=== PATIENT | female | born 1945 | race Caucasian/White ===

== ENCOUNTER 2020-07-09 16:37 | Emergency (ER) | payer MEDICARE, BC ==
[2020-07-09] MEDS ORDERED: Ketorolac 60 MG/2 ML SDV IM ONE (17:20)
--- NOTE | 2020-07-09 17:33 | EDM.PDOC ---
ED HPI GENERAL MEDICAL PROBLEM - General Chief Complaint: Lower Extremity Injury/Pain Stated Complaint: FELT A POP IN HER HIP Time Seen by Provider: 07/09/20 16:40 Source of Information: Reports: Patient History Limitations: Reports: No Limitations - History of Present Illness INITIAL COMMENTS - FREE TEXT/NARRATIVE: Was moving furniture when she heard and felt a pop in her left hip ( had arthroplasty in september has pain radiating down the lateral aspect of the left thigh and pain in the ischial spine able to flex the left knee with no pain in the hip Onset: Today Onset Date: 07/09/20 - Related Data Allergies Allergy/AdvReac Type Severity Reaction Status Date / Time No Known Allergies Allergy Verified 07/09/20 17:45 Home Meds: Home Meds Acetaminophen/HYDROcodone [[place] 325-5 MG] 1 tab PO Q6H PRN #10 tab 07/09/20 [Rx] Baclofen 10 mg PO BID #30 tablet 07/09/20 [Rx] Lidocaine 5% [Lidoderm 5%] 1 patch TOP DAILY #30 patch 07/09/20 [Rx] Review of Systems - Review of Systems Review Of Systems: See Below ED EXAM, GENERAL - Physical Exam Exam: See Below Exam Limited By: No Limitations General Appearance: Alert, WD/WN, No Apparent Distress Eye Exam: Bilateral Eye: EOMI Ears: Normal External Exam Ear Exam: Bilateral Ear: TM Dull Nose: Normal Inspection Throat/Mouth: Normal Inspection, Normal Oropharynx Head: Atraumatic, Normocephalic Neck: Supple, Non-Tender Respiratory/Chest: Lungs Clear, Normal Breath Sounds Cardiovascular: Regular Rate, Rhythm GI/Abdominal: Soft, Non-Tender Back Exam: Full Range of Motion Extremities: Limited Range of Motion (left hip), Other (normal left knee). No: Joint Swelling, Sade's Sign, Leg Pain, Redness Neurological: Alert, Oriented, CN II-XII Intact Psychiatric: Normal Affect, Normal Mood Skin Exam: Warm Course - Vital Signs Last Recorded V/S: Last Vital Signs Temp 36.8 C 07/09/20 16:37 Pulse 82 07/09/20 20:20 Resp 16 07/09/20 20:20 BP 143/74 H 07/09/20 20:20 Pulse Ox 96 07/09/20 20:20 - Orders/Labs/Meds Orders: Active Orders 24 hr Category Date Time Status Pelvis wo Cont [CT] Stat Exams 07/09/20 17:20 Taken Meds: Medications Discontinued Medications Generic Name Dose Route Start Last Admin Trade Name Jessica PRN Reason Stop Dose Admin Ketorolac Tromethamine 60 mg 07/09/20 17:20 07/09/20 17:52 Toradol IM 07/09/20 17:21 60 mg ONETIME ONE Administration Lidocaine 700 mg 07/09/20 19:51 07/09/20 20:08 Lidoderm 5% TOP 07/09/20 19:52 700 mg ONETIME ONE Administration - Re-Assessments/Exams Free Text/Narrative Re-Assessment/Exam: 07/10/20 07:[address] of the pelvis done: showed arthroplasty , no new fracture pt had toradol with good relieve of pain was discharge home on pain medication and baclofen Departure - Departure Time of Disposition: 20:20 Disposition: Home, Self-Care 01 Condition: Good Clinical Impression: Arthropathy of left hip, H/O total hip arthroplasty, Strain of left hip and thigh - Discharge Information *PRESCRIPTION DRUG MONITORING PROGRAM REVIEWED*: Not Applicable *COPY OF PRESCRIPTION DRUG MONITORING 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: Not Applicable Prescriptions: Baclofen 10 mg PO BID #30 tablet Lidocaine 5% [Lidoderm 5%] 1 patch TOP DAILY #30 patch Acetaminophen/HYDROcodone [[place] 325-5 MG] 1 tab PO Q6H PRN #10 tab PRN Reason: Pain (Severe 7-10) Instructions: Preventing Osteoarthritis, Adult, Hamstring Strain Rehab- [facility] Referrals: PCP,None [Primary Care Provider] - Forms: ED Department Discharge Additional Instructions: 1) Cold compress to affected area 3 times daily 2) Follow up with PCP as needed Sepsis Event Note (ED) - Focused Exam Vital Signs: Vital Signs Pulse Resp BP Pulse Ox 07/09/20 20:20 82 16 143/74 H 96 - My Orders Last 24 Hours: My Active Orders 07/09/20 17:20 Pelvis wo Cont [CT] Stat - Assessment/Plan Last 24 Hours: My Active Orders 07/09/20 17:20 Pelvis wo Cont [CT] Stat
[2020-07-09] MEDS ORDERED: Lidocaine 5% 700 MG Patch TOP ONE (19:51)
== END 2020-07-09 20:20 | disposition home or self-care (01) ==
LOC: FB.ED 16:37
DX: S76.012A Strain of muscle, fascia and tendon of left hip, initial encounter (principal); S76.912A Strain of unspecified muscles, fascia and tendons at thigh level, left thigh, initial encounter; M12.852 Other specific arthropathies, not elsewhere classified, left hip; Z96.642 Presence of left artificial hip joint; X50.9XXA Other and unspecified overexertion or strenuous movements or postures, initial encounter
CPT/HCPCS: 72192; 96372; 99283-25; A9270-GY; J1885

== ENCOUNTER 2021-07-14 16:13 | Emergency (ER) | payer MEDICARE, BC ==
[2021-07-14] MEDS ORDERED: Albuterol/Ipratropium 3.0-0.5 MG/3 ML Neb Soln NEB STA (17:01)
[2021-07-14] MEDS ORDERED: methylPREDNISolone Sodium Succinate 125 MG/2 ML SDV IM STA (17:01)
--- NOTE | 2021-07-14 17:15 | EDM.PDOC ---
ED HPI GENERAL MEDICAL PROBLEM - General Chief Complaint: Respiratory Problem Stated Complaint: hard time breathing Time Seen by Provider: 07/14/21 16:25 Source of Information: Reports: Patient History Limitations: Reports: No Limitations - History of Present Illness INITIAL COMMENTS - FREE TEXT/NARRATIVE: Patient presented to the ED because if increasing dyspnea, coughing which started yesterday. She has a history of COPD ad her cough is more than usual and is non-productive. There is no fever, chills, N/V/D. She had a carpal surgery couple of days ago which was uneventful. 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 - Related Data Allergies Allergy/AdvReac Type Severity Reaction Status Date / Time ciprofloxacin [From Cipro] Allergy Nausea Verified 07/14/21 16:31 Penicillins Allergy Cannot Verified 07/14/21 17:41 Remember Home Meds: Home Meds Albuterol Sulfate [Albuterol Sulfate Hfa] 2 puff IH Q4H PRN 07/14/21 [History] Albuterol/Ipratropium [DuoNeb 3.0-0.5 MG/3 ML] 3 ml INH Q4HR PRN #90 ml 07/14/21 [Rx] Azithromycin [Zithromax] 500 mg PO DAILY #5 tab 07/14/21 [Rx] Budesonide [Pulmicort] 0.5 mg IH BID 07/14/21 [History] Famotidine 40 mg PO BEDTIME 07/14/21 [History] Formoterol Fumarate [Perforomist] 20 mcg IH BEDTIME 07/14/21 [History] Ketorolac [Toradol] 10 mg Q6H PRN 07/14/21 [History] predniSONE [Prednisone] 40 mg PO DAILY #10 tablet 07/14/21 [Rx] Past Medical History HEENT History: Reports: Impaired Vision Respiratory History: Reports: Asthma, COPD Gastrointestinal History: Reports: GERD 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: Musculoskeletal History: Reports: Arthritis, Fracture Other Musculoskeletal History: hx fx R arm - Infectious Disease History Infectious Disease History: Reports: Chicken Pox, Measles, Mumps, Rheumatic Fever - Past Surgical History HEENT Surgical History: Reports: Cataract Surgery, Eye Surgery Other HEENT Surgeries/Procedures: bilat cataract, bilat eyes for macular holes GI Surgical History: Reports: Cholecystectomy, Colon, Colonoscopy, EGD, Hernia Repair/Other Other GI Surgeries/Procedures: colon for twisted colon Musculoskeletal Surgical History: Reports: Carpal Tunnel, Hip Replacement Other Musculoskeletal Surgeries/Procedures:: R carpal tunnel Social & Family History - Family History Family Medical History: No Pertinent Family History - Tobacco Use Tobacco Use Status *Q: Former Tobacco User Years of Tobacco use: 25 Used Tobacco, but Quit: Yes Month/Year Tobacco Last Used: 2017 - Caffeine Use Caffeine Use: Reports: None - Recreational Drug Use Recreational Drug Use: No ED ROS GENERAL - Review of Systems Review Of Systems: See Below Constitutional: Reports: No Symptoms HEENT: Reports: No Symptoms Respiratory: Reports: Shortness of Breath, Wheezing, Cough Cardiovascular: Reports: No Symptoms Endocrine: Reports: No Symptoms GI/Abdominal: Reports: No Symptoms : Reports: No Symptoms Musculoskeletal: Reports: No Symptoms Skin: Reports: No Symptoms Neurological: Reports: No Symptoms Psychiatric: Reports: No Symptoms ED EXAM, GENERAL - Physical Exam Exam: See Below General Appearance: Alert, No Apparent Distress Ears: Normal External Exam, Normal Canal, Hearing Grossly Normal Nose: Normal Inspection, Normal Mucosa, No Blood Throat/Mouth: Normal Inspection, Normal Lips, Normal Teeth, Normal Gums, Normal Oropharynx, Normal Voice Head: Atraumatic, Normocephalic Neck: Normal Inspection, Supple, Non-Tender, Full Range of Motion Respiratory/Chest: No Respiratory Distress, Lungs Clear, No Accessory Muscle Use, Chest Non-Tender, Decreased Breath Sounds, Wheezing Cardiovascular: Normal Peripheral Pulses, Regular Rate, Rhythm, No Edema, No Gallop, No JVD, No Murmur, No Rub GI/Abdominal: Normal Bowel Sounds, Soft, Non-Tender, No Organomegaly, No Distention, No Abnormal Bruit Back Exam: Normal Inspection, Full Range of Motion Extremities: Normal Inspection, Normal Range of Motion, No Pedal Edema, Normal Capillary Refill Neurological: Alert, Oriented, CN II-XII Intact, Normal Cognition, Normal Reflexes Psychiatric: Normal Affect Course - Vital Signs Text/Narrative:: CXR-see result Solumedrol 125 mg IM x1 Duoneb x1 Last Recorded V/S: Last Vital Signs Temp 37.3 C 07/14/21 16:20 Pulse 71 07/14/21 18:02 Resp 20 07/14/21 18:02 BP 134/64 07/14/21 18:02 Pulse Ox 95 07/14/21 18:02 - Orders/Labs/Meds Meds: Medications Discontinued Medications Generic Name Dose Route Start Last Admin Trade Name Jessica PRN Reason Stop Dose Admin Albuterol/Ipratropium 3 ml 07/14/21 17:01 07/14/21 17:34 Albuterol/Ipratropium 3.0-0.5 Mg/3 Ml Neb Soln NEB 07/14/21 17:02 3 ml NOW STA Administration Azithromycin 500 mg 07/14/21 17:33 07/14/21 20:48 Azithromycin 500 Mg Tab PO 07/14/21 17:34 Not Given NOW STA Methylprednisolone Sodium Succinate 125 mg 07/14/21 17:01 07/14/21 17:34 Methylprednisolone Sodium Succinate 125 Mg/2 Ml Sdv IM 07/14/21 17:02 125 mg NOW STA Administration Departure - Departure Time of Disposition: 17:30 Disposition: Home, Self-Care 01 Condition: Good Clinical Impression: COPD (chronic obstructive pulmonary disease) - Discharge Information Prescriptions: Albuterol/Ipratropium [DuoNeb 3.0-0.5 MG/3 ML] 3 ml INH Q4HR PRN #90 ml PRN Reason: Dyspnea predniSONE [Prednisone] 40 mg PO DAILY #10 tablet Azithromycin [Zithromax] 500 mg PO DAILY #5 tab Instructions: Chronic Obstructive Pulmonary Disease Exacerbation, [id number] Referrals: Mauro Hoang PA [Primary Care Provider] - Forms: ED Department Discharge Additional Instructions: Please read discharge instructions on COPD flare up Albuterol neb every 4-6 hours for 3 days then as needed Continue your inhalers Zithromax 500 mg daily for 5 days Prednisone 40 mg daily for 5 days starting tomorrow Follow up as needed Sepsis Event Note (ED) - Evaluation Sepsis Screening Result: No Definite Risk
[2021-07-14] MEDS ORDERED: Azithromycin 500 MG Tab PO STA (17:33)
--- NOTE | 2021-07-14 19:40 | CR ---
INDICATION: Cough, dyspnea. CHEST, ONE VIEW: An AP upright portable view of the chest was obtained 07/14/21 - no comparisons. The aorta is tortuous. The heart did not appear grossly enlarged, but is not well seen. Somewhat flattened diaphragm leaves and hyperaeration suggests COPD. Dextroconvex scoliosis thoracolumbar spine with dextroconcave scoliosis upper middle thoracic spine noted. Heavy markings are noted at the right lower lung field, which could represent fibrosis, although patchy bronchopneumonia is difficult to exclude with this appearance. However, no gross consolidating pneumonia, or effusion was seen. When clinically possible, full-inspiration PA and lateral views of the chest, may be helpful for further evaluation. MTDD
== END 2021-07-14 18:13 | disposition home or self-care (01) ==
LOC: FB.ED 16:13
DX: J44.9 Chronic obstructive pulmonary disease, unspecified (principal); K21.9 Gastro-esophageal reflux disease without esophagitis; Z88.0 Allergy status to penicillin; Z88.1 Allergy status to other antibiotic agents; Z87.891 Personal history of nicotine dependence; Z79.899 Other long term (current) drug therapy
CPT/HCPCS: 71045; 94640; 96372; 99285; J2930; J7620-GY

== ENCOUNTER 2021-11-28 21:18 | Emergency (ER) | payer MEDICARE, BC ==
[2021-11-28] MEDS ORDERED: Albuterol/Ipratropium 3.0-0.5 MG/3 ML Neb Soln NEB ONE (21:34)
[2021-11-28] MEDS ORDERED: methylPREDNISolone Sodium Succinate 125 MG/2 ML SDV IM STA (21:34)
== END 2021-11-28 22:30 | disposition home or self-care (01) ==
LOC: FB.ED 21:18
DX: J44.1 Chronic obstructive pulmonary disease with (acute) exacerbation (principal); Z88.0 Allergy status to penicillin; Z88.1 Allergy status to other antibiotic agents
CPT/HCPCS: 71045; 94640; 96372; 99282; 99285-25; J2930; J7620

== ENCOUNTER 2021-11-30 10:20 | Emergency (ER) | payer MEDICARE, BC ==
[2021-11-30] MEDS ORDERED: Albuterol/Ipratropium 3.0-0.5 MG/3 ML Neb Soln NEB ONE (10:30)
[2021-11-30] MEDS ORDERED: predniSONE 20 MG Tab PO STA (10:33)
== END 2021-11-30 13:26 | disposition home or self-care (01) ==
LOC: SUPCPDRO 10:20 → FB.ED 10:20
DX: J44.1 Chronic obstructive pulmonary disease with (acute) exacerbation (principal); K21.9 Gastro-esophageal reflux disease without esophagitis; Z88.0 Allergy status to penicillin; Z88.1 Allergy status to other antibiotic agents; Z72.0 Tobacco use
CPT/HCPCS: 94640; 99284; J7512; 99282; J7620

== ENCOUNTER 2022-08-13 14:04 | Emergency (ER) | payer MEDICARE ==
[2022-08-13] MEDS ORDERED: Ketorolac 30 MG/ML SDV IM ONE (14:53)
[2022-08-13 15:43] LABS: CORONAVIRUS COVID-19 NAA NEGATIVE (NEGATIVE)
== END 2022-08-13 16:57 | disposition home or self-care (01) ==
LOC: FB.ED 14:04
DX: J18.9 Pneumonia, unspecified organism (principal); J44.9 Chronic obstructive pulmonary disease, unspecified; Z88.1 Allergy status to other antibiotic agents; Z88.0 Allergy status to penicillin; Z79.899 Other long term (current) drug therapy; Z20.822 Contact with and (suspected) exposure to COVID-19
CPT/HCPCS: 0241U; 36415; 71046; 85027; 86140; 96372; 99285; J1885

== ENCOUNTER 2023-02-08 16:25 | Emergency (ER) | payer MEDICARE, BC ==
[2023-02-08] MEDS ORDERED: Iopamidol 755 Mg/ML 100 ML Bottle IV ONE (17:51)
== END 2023-02-08 19:25 | disposition home or self-care (01) ==
LOC: FB.ED 16:25
DX: M48.56XA Collapsed vertebra, not elsewhere classified, lumbar region, initial encounter for fracture (principal); M47.816 Spondylosis without myelopathy or radiculopathy, lumbar region; J44.9 Chronic obstructive pulmonary disease, unspecified; Z88.0 Allergy status to penicillin; Z88.1 Allergy status to other antibiotic agents; Z79.899 Other long term (current) drug therapy
CPT/HCPCS: 74177; 99283; Q9967

== ENCOUNTER 2023-02-13 06:57 | Emergency (ER) | payer MEDICARE, BC ==
[2023-02-13] MEDS ORDERED: traMADol 50 MG Tab PO ONE (07:53)
[2023-02-13] MEDS ORDERED: Cyclobenzaprine 10 MG Tab PO ONE (07:53)
[2023-02-13] MEDS ORDERED: Ketorolac 30 MG/ML SDV IM ONE ×2 (07:53→08:00)
[2023-02-13] MEDS: Ketorolac 30 MG/ML SDV IVPUSH ONE ×2 (08:03→09:12)
== END 2023-02-13 09:10 | disposition home or self-care (01) ==
LOC: FB.ED 06:57
DX: M51.16 Intervertebral disc disorders with radiculopathy, lumbar region (principal); J44.9 Chronic obstructive pulmonary disease, unspecified; Z87.891 Personal history of nicotine dependence; Z79.899 Other long term (current) drug therapy; Z88.1 Allergy status to other antibiotic agents; Z88.0 Allergy status to penicillin
CPT/HCPCS: 96372; 99283; A9270; J1885

== ENCOUNTER 2023-07-05 23:28 | Observation (INO) | payer MEDICARE, BC ==
[2023-07-05 23:58] LABS: BASOPHILS PERCENT AUTO 0.5 % (0.2-1.5); EOSINOPHILS ABSOLUTE AUTO 0.2 x10-3/uL (0.0-0.8); EOSINOPHILS PERCENT AUTO 2.8 % (0.6-8.1); HEMOGLOBIN 12.3 g/dL (11.4-15.5); LYMPHOCYTES ABSOLUTE AUTO 1.2 x10-3/uL (1.0-4.4); LYMPHOCYTES PERCENT AUTO 21.4 % (18.4-52.1); MEAN CORPUSCULAR HEMOGLOBIN 30.8 pg (23.9-33.9); MEAN CORPUSCULAR HGB CONC 33.4 g/dL (31.9-34.8); MEAN CORPUSCULAR VOLUME 92.1 fL (76.7-100.5); MEAN PLATELET VOLUME 7.1 fL (7.1-12.4); MONOCYTES ABSOLUTE AUTO 0.6 x10-3/uL (0.3-1.0); MONOCYTES PERCENT AUTO 11.1 % (4.4-15.7); NEUTROPHILS ABSOLUTE AUTO 3.6 x10-3/uL (1.5-6.3); NEUTROPHILS PERCENT AUTO 64.2 % (30.8-76.2); PLATELET COUNT,PLT 322 x10(3)uL (151-488); RED BLOOD CELL COUNT 4.01 x10(6)uL (3.60-5.20); RED CELL DISTRIBUTION WIDTH 12.9 % (12.3-16.5); WHITE BLOOD CELL COUNT,WBC 5.6 x10-3/uL (3.0-10.3)
[2023-07-06] MEDS ORDERED: HYDROmorphone 2 MG/ML SDV IM ONE (00:23)
[2023-07-06] MEDS ORDERED: hydrOXYzine HCl 50 MG/ML SDV IM ONE (00:23)
[2023-07-06] MEDS ORDERED: Triamcinolone Acetonide 40 MG/ML 1 ML SDV IM ONE (02:08)
[2023-07-06] MEDS ORDERED: Lidocaine 2% 5 ML SDV INJECT ONE (02:09)
[2023-07-06] MEDS ORDERED: LIDOCAINE 2% INJECT ONE (02:15)
[2023-07-06] MEDS ORDERED: HYDROmorphone 2 MG/ML SDV IVPUSH PRN (02:25)
[2023-07-06] MEDS ORDERED: Ondansetron 4 MG/2 ML SDV IV PRN (02:25)
[2023-07-06] MEDS: Sodium Chloride 0.9% 10 ML Syringe FLUSH PRN ×2 (03:30→03:35)
[2023-07-06] MEDS: cefTRIAXone 2 GM Vial IVPUSH SCH (03:31)
[2023-07-06] MEDS: Enoxaparin 40 MG/0.4 ML Syringe SUBCUT SCH (03:36)
[2023-07-06] MEDS: Ibuprofen 800 MG Tab PO PRN ×2 (06:29→21:10)
[2023-07-06 06:42] LABS: BASOPHILS PERCENT AUTO 0.8 % (0.2-1.5); EOSINOPHILS ABSOLUTE AUTO 0.1 x10-3/uL (0.0-0.8); EOSINOPHILS PERCENT AUTO 2.3 % (0.6-8.1); HEMOGLOBIN 12.4 g/dL (11.4-15.5); LYMPHOCYTES ABSOLUTE AUTO 0.9 x10-3/uL (1.0-4.4); MEAN CORPUSCULAR HGB CONC 33.4 g/dL (31.9-34.8); MEAN CORPUSCULAR VOLUME 92.6 fL (76.7-100.5); MEAN PLATELET VOLUME 7.1 fL (7.1-12.4); MONOCYTES ABSOLUTE AUTO 0.5 x10-3/uL (0.3-1.0); MONOCYTES PERCENT AUTO 9.4 % (4.4-15.7); NEUTROPHILS ABSOLUTE AUTO 3.9 x10-3/uL (1.5-6.3); NEUTROPHILS PERCENT AUTO 70.5 % (30.8-76.2); PLATELET COUNT,PLT 300 x10(3)uL (151-488); RED BLOOD CELL COUNT 3.99 x10(6)uL (3.60-5.20); RED CELL DISTRIBUTION WIDTH 12.7 % (12.3-16.5); WHITE BLOOD CELL COUNT,WBC 5.6 x10-3/uL (3.0-10.3)
[2023-07-06 06:51] LABS: BLOOD UREA NITROGEN,BUN 8 mg/dL (7-18); BUN/CREATININE RATIO 13.3 (9-20); CALCIUM 9.2 mg/dL (8.6-10.2); CARBON DIOXIDE,CO2 31 mmol/L (21-32); CHLORIDE,CL 105 mmol/L (100-110); CREATININE 0.6 mg/dL (0.55-1.02); EST CRCL DRUG DOSING (CG) 69.53 mL/min; ESTIMATED GFR 92 mL/min (>60); GLUCOSE RANDOM 102 mg/dL (80-116); SODIUM,NA 140 mmol/L (135-145)
[2023-07-06] MEDS ORDERED: Celecoxib 100 MG Cap PO SCH (10:15)
[2023-07-06] MEDS: Budesonide 0.5 MG/2 ML Neb Susp INH SCH ×2 (10:59→20:53)
[2023-07-06] MEDS: Arformoterol 15 MCG/2 ML Neb Soln INH SCH ×2 (10:59→20:53)
[2023-07-07] MEDS: cefTRIAXone 2 GM Vial IVPUSH SCH (02:22)
[2023-07-07] MEDS: Sodium Chloride 0.9% 10 ML Syringe FLUSH PRN (02:24)
[2023-07-07] MEDS: Enoxaparin 40 MG/0.4 ML Syringe SUBCUT SCH (02:30)
[2023-07-07] MEDS: Ibuprofen 800 MG Tab PO PRN (08:31)
[2023-07-07] MEDS: Arformoterol 15 MCG/2 ML Neb Soln INH SCH (08:33)
[2023-07-07] MEDS: Budesonide 0.5 MG/2 ML Neb Susp INH SCH (08:33)
== END 2023-07-07 10:32 | disposition home or self-care (01) ==
LOC: FB.ED 23:28 → FB.MS 07-06 02:24
PROVIDERS: ADMIT Family Medicine; ATTEND Family Medicine
DX: L03.115 Cellulitis of right lower limb (principal); M70.62 Trochanteric bursitis, left hip; J43.1 Panlobular emphysema; S32.050D Wedge compression fracture of fifth lumbar vertebra, subsequent encounter for fracture with routine healing; M51.36 Other intervertebral disc degeneration, lumbar region; R53.1 Weakness; K21.9 Gastro-esophageal reflux disease without esophagitis; Z87.891 Personal history of nicotine dependence; Z88.5 Allergy status to narcotic agent; Z88.0 Allergy status to penicillin; Z88.1 Allergy status to other antibiotic agents; Z79.1 Long term (current) use of non-steroidal anti-inflammatories (NSAID); Z79.899 Other long term (current) drug therapy; Z96.642 Presence of left artificial hip joint
CPT/HCPCS: 20610; 36415; 72192; 73700; 80048; 84550; 85025; 86140; 94640; 96372; 96374; 96376; 99222; 99238; 99284; A9270; G0378; J0696; J1170; J1650; J3301; J3410; J3490; J7605

== ENCOUNTER 2023-08-28 23:48 | Emergency (ER) | payer MEDICARE, BC ==
[2023-08-28] MEDS ORDERED: Sodium Chloride 0.9% 10 ML Syringe FLUSH PRN (23:58)
[2023-08-29 00:15] LABS: BASE EXCESS VENOUS,POC 3 mmol/L (-2 - 3+); PCO2 VENOUS,POC 37 mmHg (41-51); PH VENOUS,POC 7.47 pH Units (7.32-7.43)
[2023-08-29 00:18] LABS: BASOPHILS PERCENT AUTO 0.5 % (0.2-1.5); EOSINOPHILS ABSOLUTE AUTO 0.1 x10-3/uL (0.0-0.8); EOSINOPHILS PERCENT AUTO 0.7 % (0.6-8.1); HEMATOCRIT 35.5 % (34.2-48.2); HEMOGLOBIN 11.9 g/dL (11.4-15.5); LYMPHOCYTES PERCENT AUTO 11.7 % (18.4-52.1); MEAN CORPUSCULAR HEMOGLOBIN 29.1 pg (23.9-33.9); MEAN CORPUSCULAR HGB CONC 33.4 g/dL (31.9-34.8); MEAN CORPUSCULAR VOLUME 87.2 fL (76.7-100.5); MEAN PLATELET VOLUME 7.1 fL (7.1-12.4); MONOCYTES ABSOLUTE AUTO 0.7 x10-3/uL (0.3-1.0); MONOCYTES PERCENT AUTO 8.7 % (4.4-15.7); NEUTROPHILS ABSOLUTE AUTO 6.7 x10-3/uL (1.5-6.3); NEUTROPHILS PERCENT AUTO 78.4 % (30.8-76.2); PLATELET COUNT,PLT 408 x10(3)uL (151-488); RED BLOOD CELL COUNT 4.08 x10(6)uL (3.60-5.20); RED CELL DISTRIBUTION WIDTH 13.7 % (12.3-16.5); WHITE BLOOD CELL COUNT,WBC 8.5 x10-3/uL (3.0-10.3)
[2023-08-29 00:30] LABS: A/G RATIO 0.3; ALANINE AMINOTRANSFERASE,ALT 28 U/L (12-36); ALKALINE PHOSPHATASE 149 IU/L (56-112); ASPARTATE AMNIOTRANSFERASE,AST 31 IU/L (5-25); BILIRUBIN TOTAL 0.3 mg/dL (0.1-1.3); BLOOD UREA NITROGEN,BUN 9 mg/dL (7-18); CARBON DIOXIDE,CO2 33 mmol/L (21-32); CHLORIDE,CL 101 mmol/L (100-110); CREATININE 0.6 mg/dL (0.55-1.02); EST CRCL DRUG DOSING (CG) 65.65 mL/min; ESTIMATED GFR 91 mL/min (>60); GLUCOSE RANDOM 119 mg/dL (80-116); MAGNESIUM 1.6 mg/dL (1.8-2.5); PROTEIN TOTAL,TP 8.1 g/dL (6.0-8.0); SODIUM,NA 136 mmol/L (135-145)
[2023-08-29 00:34] LABS: TROPONIN I 12.7 pg/mL (4.0-60.3)
[2023-08-29 00:36] LABS: C-REACTIVE PROTEIN 6.84 mg/dL (<0.50)
[2023-08-29] MEDS ORDERED: Iopamidol 755 Mg/ML 100 ML Bottle IV SCH (02:00)
[2023-08-29] MEDS ORDERED: predniSONE 20 MG Tab PO ONE (02:26)
[2023-08-29] MEDS ORDERED: Doxycycline 100 MG Tab PO ONE (02:26)
== END 2023-08-29 02:45 | disposition home or self-care (01) ==
LOC: FB.ED 23:48
DX: J44.1 Chronic obstructive pulmonary disease with (acute) exacerbation (principal); K21.9 Gastro-esophageal reflux disease without esophagitis; Z87.891 Personal history of nicotine dependence; Z79.899 Other long term (current) drug therapy; Z88.1 Allergy status to other antibiotic agents; Z88.5 Allergy status to narcotic agent; Z88.0 Allergy status to penicillin; Z86.16 Personal history of COVID-19
CPT/HCPCS: 36415; 71045; 71275; 80053; 83605; 83735; 83880; 84484; 85025; 85379; 86140; 93005; 99285; A9270-GY; J3490; J7512; Q9967

== ENCOUNTER 2023-09-26 09:20 | Emergency (ER) | payer MEDICARE, BC ==
[2023-09-26] MEDS ORDERED: methylPREDNISolone Sodium Succinate 125 MG/2 ML SDV IM STA (09:21)
[2023-09-26] MEDS ORDERED: Albuterol/Ipratropium 3.0-0.5 MG/3 ML Neb Soln NEB ONE (09:21)
[2023-09-26 10:37] LABS: HEMATOCRIT 35.3 % (34.2-48.2); HEMOGLOBIN 11.6 g/dL (11.4-15.5); MEAN CORPUSCULAR HEMOGLOBIN 28.5 pg (23.9-33.9); MEAN CORPUSCULAR VOLUME 86.5 fL (76.7-100.5); MEAN PLATELET VOLUME 6.5 fL (7.1-12.4); PLATELET COUNT,PLT 514 x10(3)uL (151-488); RED BLOOD CELL COUNT 4.08 x10(6)uL (3.60-5.20); RED CELL DISTRIBUTION WIDTH 16.3 % (12.3-16.5)
[2023-09-26 10:49] LABS: BLOOD UREA NITROGEN,BUN 10 mg/dL (7-18); BUN/CREATININE RATIO 16.7 (9-20); CALCIUM 7.4 mg/dL (8.6-10.2); CARBON DIOXIDE,CO2 29 mmol/L (21-32); CHLORIDE,CL 98 mmol/L (100-110); CREATININE 0.6 mg/dL (0.55-1.02); ESTIMATED GFR 91 mL/min (>60); GLUCOSE RANDOM 109 mg/dL (80-116); POTASSIUM,K 3.8 mmol/L (3.5-5.3); SODIUM,NA 133 mmol/L (135-145)
[2023-09-26 10:55] LABS: A/G RATIO 0.4; ALANINE AMINOTRANSFERASE,ALT 22 U/L (12-36); ALBUMIN 1.9 g/dL (3.2-4.6); ALKALINE PHOSPHATASE 99 IU/L (56-112); ASPARTATE AMNIOTRANSFERASE,AST 34 IU/L (5-25); BILIRUBIN TOTAL 0.7 mg/dL (0.1-1.3); PROTEIN TOTAL,TP 6.7 g/dL (6.0-8.0)
[2023-09-26 10:56] LABS: TROPONIN I 4.1 pg/mL (4.0-60.3)
[2023-09-26 11:06] LABS: INR 1.08 (1.00-1.24); PROTHROMBIN TIME 11.1 sec (9.0-11.1); PTT,PARTIAL THROMBOPLSTIN TIME 32.6 SECONDS (24.4-33.2)
[2023-09-26 11:29] LABS: BAND PERCENT MAN 6 % (0-6); LYMPHOCYTES PERCENT MAN 8 % (13-37); MONOCYTES PERCENT MAN 3 % (4-12); SEG NEUTROPHILS PERCENT MAN 83 % (46-82)
[2023-09-26] MEDS ORDERED: Clopidogrel 75 MG Tab PO ONE (11:36)
[2023-09-26] MEDS ORDERED: Heparin Sodium 5,000 Units/ML Vial IVPUSH STA (11:36)
[2023-09-26] MEDS ORDERED: Aspirin 81 MG Tab.Chew PO ONE (11:36)
[2023-09-26] MEDS ORDERED: Heparin Sodium/0.45% NaCl 500 ML IV SCH ×2 (11:38→11:43)
== END 2023-09-26 12:25 ==
LOC: FB.ED 09:20
DX: J43.1 Panlobular emphysema (principal); I30.9 Acute pericarditis, unspecified; I24.9 Acute ischemic heart disease, unspecified; J44.9 Chronic obstructive pulmonary disease, unspecified; Z79.899 Other long term (current) drug therapy; Z88.0 Allergy status to penicillin; Z88.1 Allergy status to other antibiotic agents; Z88.5 Allergy status to narcotic agent
CPT/HCPCS: 36415; 71045; 80053; 83880; 84484; 85025; 85610; 85730; 93005; 93010; 94640; 96372; 96374; 99285; 99285-25; A9270-GY; J1644; J2930; J7620

== ENCOUNTER 2023-10-15 22:28 | Emergency (ER) | payer MEDICARE, BC ==
[2023-10-15] MEDS ORDERED: Acetaminophen 500 MG Tab PO ONE (22:56)
[2023-10-15] MEDS ORDERED: Sodium Chloride 0.9% 1,000 ML IV ONE (22:59)
[2023-10-15] MEDS ORDERED: Ondansetron 4 MG/2 ML SDV IVPUSH ONE (23:15)
[2023-10-15 23:25] LABS: HEMATOCRIT 39.5 % (34.2-48.2); HEMOGLOBIN 12.9 g/dL (11.4-15.5); MEAN CORPUSCULAR HEMOGLOBIN 28.7 pg (23.9-33.9); MEAN CORPUSCULAR HGB CONC 32.5 g/dL (31.9-34.8); MEAN CORPUSCULAR VOLUME 88.3 fL (76.7-100.5); MEAN PLATELET VOLUME 8.3 fL (7.1-12.4); PLATELET COUNT,PLT 202 x10(3)uL (151-488); RED BLOOD CELL COUNT 4.47 x10(6)uL (3.60-5.20); RED CELL DISTRIBUTION WIDTH 19.3 % (12.3-16.5); WHITE BLOOD CELL COUNT,WBC 13.1 x10-3/uL (3.0-10.3)
[2023-10-15 23:28] LABS: BLOOD UREA NITROGEN,BUN 21 mg/dL (7-18); CALCIUM 8.2 mg/dL (8.6-10.2); CARBON DIOXIDE,CO2 25 mmol/L (21-32); CHLORIDE,CL 96 mmol/L (100-110); ESTIMATED GFR 57 mL/min (>60); GLUCOSE RANDOM 88 mg/dL (80-116); POTASSIUM,K 3.3 mmol/L (3.5-5.3); SODIUM,NA 131 mmol/L (135-145)
[2023-10-15 23:37] LABS: TROPONIN I 4.2 pg/mL (4.0-60.3)
[2023-10-15 23:40] LABS: A/G RATIO 0.6; ALANINE AMINOTRANSFERASE,ALT 45 U/L (12-36); ALBUMIN 2.9 g/dL (3.2-4.6); ALKALINE PHOSPHATASE 130 IU/L (56-112); ASPARTATE AMNIOTRANSFERASE,AST 43 IU/L (5-25); BILIRUBIN TOTAL 1.2 mg/dL (0.1-1.3); PROTEIN TOTAL,TP 7.9 g/dL (6.0-8.0)
[2023-10-15 23:43] LABS: C-REACTIVE PROTEIN 19.06 mg/dL (<0.50)
[2023-10-15] MEDS ORDERED: Sodium Chloride 0.9% 1,000 ML IV SCH (23:45)
[2023-10-15 23:49] LABS: LYMPHOCYTES PERCENT MAN 5 % (13-37); MONOCYTES PERCENT MAN 6 % (4-12); SEG NEUTROPHILS PERCENT MAN 89 % (46-82)
[2023-10-15] MEDS ORDERED: Potassium Chloride 20 MEQ Tab.ER PO ONE (23:49)
[2023-10-15] MEDS ORDERED: Magnesium Sulfate/Water 2 GM in Premix Bag 1 BAG IV ONE (23:50)
[2023-10-15] MEDS ORDERED: Potassium Chloride 20 MEQ in Premix Bag 1 BAG IV ONE (23:57)
[2023-10-16] MEDS ORDERED: Iopamidol 755 Mg/ML 100 ML Bottle IV SCH (01:00)
[2023-10-16 01:09] LABS: BILIRUBIN,URINE NEGATIVE (NEGATIVE); GLUCOSE,URINE NORMAL (NORMAL); KETONES,URINE 50 mg/dL (NEGATIVE); LEUKOCYTE ESTERASE,URINE LARGE (NEGATIVE); NITRITE,URINE NEGATIVE (NEGATIVE); OCCULT BLOOD,URINE MODERATE (NEGATIVE); PROTEIN,URINE TRACE mg/dL (NEGATIVE); UROBILINOGEN,URINE NORMAL (NEGATIVE)
[2023-10-16 01:17] LABS: APPEARANCE,URINE CLEAR (CLEAR); BACTERIA,URINE MODERATE (NS); COLOR,URINE YELLOW (YELLOW); RBC,URINE 0-5 (0-5); SQUAMOUS EPITHELIAL CELLS,UR FEW (NS,R,O); WBC,URINE 0-5 (0-5)
[2023-10-16] MEDS ORDERED: cefTRIAXone 1 GM Vial IVPUSH SCH (02:00)
== END 2023-10-16 03:37 ==
LOC: FB.ED 22:28
DX: R50.9 Fever, unspecified (principal); R19.7 Diarrhea, unspecified; J44.9 Chronic obstructive pulmonary disease, unspecified; K21.9 Gastro-esophageal reflux disease without esophagitis; Z86.16 Personal history of COVID-19; Z90.710 Acquired absence of both cervix and uterus; Z79.899 Other long term (current) drug therapy; Z88.0 Allergy status to penicillin; Z88.1 Allergy status to other antibiotic agents; Z88.5 Allergy status to narcotic agent
CPT/HCPCS: 36415; 71046; 74177; 80053; 81001; 83605; 83735; 84443; 84484; 85025; 86140; 87040; 87086; 93005; 93010; 96365; 96366; 96368; 96375; 99285; 99285-25; A9270-GY; J0696; J2405; J3475; J3480; J7030; Q9967

== ENCOUNTER 2023-12-25 17:11 | Inpatient (IN) | payer MEDICARE, BC ==
[2023-12-25 18:07] LABS: INFLUENZA A NAA NEGATIVE (NEGATIVE); INFLUENZA B NAA NEGATIVE (NEGATIVE); RESPIRATORY SYNCYTIAL VIR NAA NEGATIVE (NEGATIVE)
[2023-12-25] MEDS: Albuterol/Ipratropium 3.0-0.5 MG/3 ML Neb Soln NEB ONE (18:40)
[2023-12-25 18:52] LABS: BASOPHILS PERCENT AUTO 0.7 % (0.2-1.5); EOSINOPHILS ABSOLUTE AUTO 0.1 x10-3/uL (0.0-0.8); EOSINOPHILS PERCENT AUTO 1.9 % (0.6-8.1); HEMATOCRIT 36.9 % (34.2-48.2); HEMOGLOBIN 12.1 g/dL (11.4-15.5); LYMPHOCYTES PERCENT AUTO 22.2 % (18.4-52.1); MEAN CORPUSCULAR HEMOGLOBIN 28.9 pg (23.9-33.9); MEAN CORPUSCULAR HGB CONC 32.8 g/dL (31.9-34.8); MEAN CORPUSCULAR VOLUME 88.2 fL (76.7-100.5); MEAN PLATELET VOLUME 7.5 fL (7.1-12.4); MONOCYTES ABSOLUTE AUTO 0.5 x10-3/uL (0.3-1.0); MONOCYTES PERCENT AUTO 12.5 % (4.4-15.7); NEUTROPHILS ABSOLUTE AUTO 2.7 x10-3/uL (1.5-6.3); NEUTROPHILS PERCENT AUTO 62.7 % (30.8-76.2); PLATELET COUNT,PLT 269 x10(3)uL (151-488); RED BLOOD CELL COUNT 4.18 x10(6)uL (3.60-5.20); WHITE BLOOD CELL COUNT,WBC 4.4 x10-3/uL (3.0-10.3)
[2023-12-25 18:54] LABS: BLOOD UREA NITROGEN,BUN 8 mg/dL (7-18); BUN/CREATININE RATIO 13.3 (9-20); CALCIUM 8.5 mg/dL (8.6-10.2); CARBON DIOXIDE,CO2 33 mmol/L (21-32); CHLORIDE,CL 102 mmol/L (100-110); CREATININE 0.6 mg/dL (0.55-1.02); EST CRCL DRUG DOSING (CG) 68.41 mL/min; ESTIMATED GFR 91 mL/min (>60); GLUCOSE RANDOM 92 mg/dL (80-116); POTASSIUM,K 3.2 mmol/L (3.5-5.3); SODIUM,NA 140 mmol/L (135-145)
[2023-12-25 18:57] LABS: CORONAVIRUS COVID-19 NAA NEGATIVE (NEGATIVE)
[2023-12-25 19:00] LABS: A/G RATIO 0.5; ALANINE AMINOTRANSFERASE,ALT 72 U/L (12-36); ALBUMIN 2.5 g/dL (3.2-4.6); ALKALINE PHOSPHATASE 265 IU/L (56-112); ASPARTATE AMNIOTRANSFERASE,AST 72 IU/L (5-25); BILIRUBIN TOTAL 0.4 mg/dL (0.1-1.3); MAGNESIUM 1.9 mg/dL (1.8-2.5); PROTEIN TOTAL,TP 7.8 g/dL (6.0-8.0)
[2023-12-25 19:09] LABS: TROPONIN I 4.6 pg/mL (4.0-60.3)
[2023-12-25 19:11] LABS: C-REACTIVE PROTEIN 3.69 mg/dL (<0.50)
[2023-12-25] MEDS: Potassium Chloride 20 MEQ Tab.ER PO ONE (19:40)
[2023-12-25 19:46] LABS: BILIRUBIN,URINE SMALL (NEGATIVE); GLUCOSE,URINE NORMAL (NORMAL); KETONES,URINE NEGATIVE (NEGATIVE); LEUKOCYTE ESTERASE,URINE MODERATE (NEGATIVE); NITRITE,URINE NEGATIVE (NEGATIVE); OCCULT BLOOD,URINE MODERATE (NEGATIVE); PROTEIN,URINE NEGATIVE (NEGATIVE); UROBILINOGEN,URINE NORMAL (NEGATIVE)
[2023-12-25 19:49] LABS: APPEARANCE,URINE CLEAR (CLEAR); BACTERIA,URINE MODERATE (NS); COLOR,URINE YELLOW (YELLOW); RBC,URINE 0-5 (0-5); SQUAMOUS EPITHELIAL CELLS,UR FEW (NS,R,O)
[2023-12-25] MEDS: Iopamidol 755 Mg/ML 100 ML Bottle IV SCH (20:10)
[2023-12-25] MEDS ORDERED: Albuterol 0.083% 2.5 MG/3 ML Neb Soln NEB PRN (21:04)
[2023-12-25] MEDS ORDERED: Ondansetron 4 MG/2 ML SDV IV PRN (21:07)
[2023-12-25] MEDS ORDERED: Acetaminophen 325 MG Tab PO PRN (21:07)
[2023-12-25] MEDS ORDERED: Magnesium Hydroxide 400 MG/5 ML Susp 30 ML Cup PO PRN (21:07)
[2023-12-25] MEDS ORDERED: Dextrose 5%-0.45% NaCl 1,000 ML IV SCH (21:15)
[2023-12-25] MEDS ORDERED: Fluticasone NASAL Spray 16 GM Bottle NASBOTH PRN (21:15)
[2023-12-25] MEDS: Budesonide 0.5 MG/2 ML Neb Susp NEB SCH (22:32)
[2023-12-25] MEDS: Ciprofloxacin in D5W 400 MG in Premix Bag 1 BAG IV SCH (22:33)
[2023-12-25] MEDS: Albuterol/Ipratropium 3.0-0.5 MG/3 ML Neb Soln INH SCH (22:33)
[2023-12-25] MEDS: Zolpidem 5 MG Tab PO PRN (22:34)
[2023-12-25] MEDS: Rosuvastatin 5 MG Tab PO SCH (23:12)
[2023-12-25] MEDS: Enoxaparin 40 MG/0.4 ML Syringe SUBCUT SCH (23:17)
[2023-12-26] MEDS: Sodium Chloride 0.9% 10 ML Syringe FLUSH PRN (06:45)
[2023-12-26 06:51] LABS: BASOPHILS PERCENT AUTO 0.7 % (0.2-1.5); EOSINOPHILS ABSOLUTE AUTO 0.1 x10-3/uL (0.0-0.8); EOSINOPHILS PERCENT AUTO 1.7 % (0.6-8.1); HEMATOCRIT 34.4 % (34.2-48.2); HEMOGLOBIN 11.2 g/dL (11.4-15.5); LYMPHOCYTES ABSOLUTE AUTO 0.8 x10-3/uL (1.0-4.4); LYMPHOCYTES PERCENT AUTO 21.3 % (18.4-52.1); MEAN CORPUSCULAR HEMOGLOBIN 28.6 pg (23.9-33.9); MEAN CORPUSCULAR HGB CONC 32.5 g/dL (31.9-34.8); MEAN PLATELET VOLUME 7.1 fL (7.1-12.4); MONOCYTES ABSOLUTE AUTO 0.5 x10-3/uL (0.3-1.0); MONOCYTES PERCENT AUTO 15.3 % (4.4-15.7); NEUTROPHILS ABSOLUTE AUTO 2.2 x10-3/uL (1.5-6.3); PLATELET COUNT,PLT 222 x10(3)uL (151-488); RED BLOOD CELL COUNT 3.91 x10(6)uL (3.60-5.20); RED CELL DISTRIBUTION WIDTH 15.8 % (12.3-16.5); WHITE BLOOD CELL COUNT,WBC 3.6 x10-3/uL (3.0-10.3)
[2023-12-26 07:04] LABS: BLOOD UREA NITROGEN,BUN 5 mg/dL (7-18); CALCIUM 8.2 mg/dL (8.6-10.2); CARBON DIOXIDE,CO2 31 mmol/L (21-32); CHLORIDE,CL 104 mmol/L (100-110); CREATININE 0.5 mg/dL (0.55-1.02); EST CRCL DRUG DOSING (CG) 65.53 mL/min; ESTIMATED GFR 95 mL/min (>60); GLUCOSE RANDOM 90 mg/dL (80-116); POTASSIUM,K 3.6 mmol/L (3.5-5.3); SODIUM,NA 140 mmol/L (135-145)
[2023-12-26] MEDS: Calcium Carbonate 500 MG Tab.Chew PO SCH (08:48)
[2023-12-26] MEDS: Potassium Chloride 20 MEQ Tab.ER PO SCH (08:48)
[2023-12-26] MEDS: Enoxaparin 40 MG/0.4 ML Syringe SUBCUT SCH (08:48)
[2023-12-26] MEDS: methylPREDNISolone Sodium Succinate 125 MG/2 ML SDV IVPUSH SCH (08:48)
[2023-12-26] MEDS: Aspirin 81 MG Tab.EC PO SCH (08:48)
[2023-12-26] MEDS: Arformoterol 15 MCG/2 ML Neb Soln INH SCH (08:48)
[2023-12-26] MEDS ORDERED: Aspirin 81 MG Tab.Chew PO SCH (09:00)
[2023-12-26] MEDS ORDERED: methylPREDNISolone Sod Succ 125 MG in Sodium Chloride 0.9% 100 ML IV SCH (09:00)
[2023-12-26] MEDS: Enoxaparin 30 MG/0.3 ML Syringe SUBCUT SCH (12:05)
[2023-12-26] MEDS: methylPREDNISolone Sodium Succinate 40 MG/1 ML SDV IVPUSH SCH (20:17)
[2023-12-27 07:03] LABS: BASOPHILS PERCENT AUTO 0.4 % (0.2-1.5); HEMATOCRIT 34.3 % (34.2-48.2); HEMOGLOBIN 11.3 g/dL (11.4-15.5); LYMPHOCYTES ABSOLUTE AUTO 0.7 x10-3/uL (1.0-4.4); LYMPHOCYTES PERCENT AUTO 11.6 % (18.4-52.1); MEAN CORPUSCULAR HEMOGLOBIN 28.9 pg (23.9-33.9); MEAN CORPUSCULAR HGB CONC 32.9 g/dL (31.9-34.8); MEAN CORPUSCULAR VOLUME 87.9 fL (76.7-100.5); MEAN PLATELET VOLUME 7.4 fL (7.1-12.4); MONOCYTES ABSOLUTE AUTO 0.4 x10-3/uL (0.3-1.0); MONOCYTES PERCENT AUTO 6.5 % (4.4-15.7); NEUTROPHILS ABSOLUTE AUTO 5.2 x10-3/uL (1.5-6.3); NEUTROPHILS PERCENT AUTO 81.5 % (30.8-76.2); PLATELET COUNT,PLT 241 x10(3)uL (151-488); RED CELL DISTRIBUTION WIDTH 15.7 % (12.3-16.5); WHITE BLOOD CELL COUNT,WBC 6.4 x10-3/uL (3.0-10.3)
[2023-12-27 07:13] LABS: ALANINE AMINOTRANSFERASE,ALT 49 U/L (12-36); ALBUMIN 2.3 g/dL (3.2-4.6); ALKALINE PHOSPHATASE 232 IU/L (56-112); ASPARTATE AMNIOTRANSFERASE,AST 37 IU/L (5-25); BILIRUBIN DIRECT 0.13 mg/dL (0.10-0.20); BILIRUBIN TOTAL 0.2 mg/dL (0.1-1.3); BLOOD UREA NITROGEN,BUN 12 mg/dL (7-18); CALCIUM 8.7 mg/dL (8.6-10.2); CARBON DIOXIDE,CO2 29 mmol/L (21-32); CHLORIDE,CL 106 mmol/L (100-110); CREATININE 0.6 mg/dL (0.55-1.02); EST CRCL DRUG DOSING (CG) 54.61 mL/min; ESTIMATED GFR 91 mL/min (>60); GLUCOSE RANDOM 166 mg/dL (80-116); POTASSIUM,K 4.2 mmol/L (3.5-5.3); PROTEIN TOTAL,TP 7.5 g/dL (6.0-8.0); SODIUM,NA 141 mmol/L (135-145)
[2023-12-27] MEDS: methylPREDNISolone Sodium Succinate 40 MG/1 ML SDV IVPUSH ONE (20:45)
[2023-12-28 06:28] LABS: HEMOGLOBIN 11.5 g/dL (11.4-15.5); MEAN CORPUSCULAR HGB CONC 32.8 g/dL (31.9-34.8); MEAN CORPUSCULAR VOLUME 88.4 fL (76.7-100.5); MEAN PLATELET VOLUME 7.1 fL (7.1-12.4); PLATELET COUNT,PLT 261 x10(3)uL (151-488); RED BLOOD CELL COUNT 3.96 x10(6)uL (3.60-5.20); RED CELL DISTRIBUTION WIDTH 15.7 % (12.3-16.5); WHITE BLOOD CELL COUNT,WBC 8.7 x10-3/uL (3.0-10.3)
[2023-12-28 06:33] LABS: BLOOD UREA NITROGEN,BUN 22 mg/dL (7-18); BUN/CREATININE RATIO 36.7 (9-20); CARBON DIOXIDE,CO2 29 mmol/L (21-32); CHLORIDE,CL 107 mmol/L (100-110); CREATININE 0.6 mg/dL (0.55-1.02); EST CRCL DRUG DOSING (CG) 54.61 mL/min; ESTIMATED GFR 91 mL/min (>60); GLUCOSE RANDOM 155 mg/dL (80-116); POTASSIUM,K 4.3 mmol/L (3.5-5.3); SODIUM,NA 143 mmol/L (135-145)
[2023-12-28 06:53] LABS: BAND PERCENT MAN 1 % (0-6); LYMPHOCYTES PERCENT MAN 11 % (13-37); MONOCYTES PERCENT MAN 2 % (4-12); SEG NEUTROPHILS PERCENT MAN 86 % (46-82)
[2023-12-28] MEDS: predniSONE 20 MG Tab PO SCH (09:19)
== END 2023-12-28 12:04 | disposition home or self-care (01) | DRG 189 ==
LOC: FB.ED 17:11 → FB.MS 20:38 → OBSVTOIN 12-26 11:12
PROVIDERS: ADMIT Internal Medicine; ATTEND Family Medicine
DX: J96.01 Acute respiratory failure with hypoxia (principal); J44.1 Chronic obstructive pulmonary disease with (acute) exacerbation; N39.0 Urinary tract infection, site not specified; R09.02 Hypoxemia; E78.00 Pure hypercholesterolemia, unspecified; K21.9 Gastro-esophageal reflux disease without esophagitis; R94.5 Abnormal results of liver function studies; E87.6 Hypokalemia; Z86.16 Personal history of COVID-19; E88.09 Other disorders of plasma-protein metabolism, not elsewhere classified; R79.82 Elevated C-reactive protein (CRP); R79.89 Other specified abnormal findings of blood chemistry; Z88.0 Allergy status to penicillin; Z88.5 Allergy status to narcotic agent; Z88.1 Allergy status to other antibiotic agents; Z79.82 Long term (current) use of aspirin; Z98.49 Cataract extraction status, unspecified eye; Z90.49 Acquired absence of other specified parts of digestive tract; Z96.649 Presence of unspecified artificial hip joint; Z90.710 Acquired absence of both cervix and uterus; Z79.899 Other long term (current) drug therapy
CPT/HCPCS: 0241U; 36415; 71046; 71275; 80048; 80053; 80076; 81001; 83605; 83735; 83880; 84484; 85025; 85379; 86140; 87040; 87086; 87486; 87581; 87633; 87798; 93005; 93010; 94640; 96365; 96366; 96372; 96375; 97161-GP; 99223; 99232; 99238; 99285; A9270-GY; G0378; J0744; J1650; J2920; J2930; J3490; J7512; J7605; J7620; Q9967

== ENCOUNTER 2024-03-13 16:45 | Emergency (ER) | payer OTHER, MEDICARE, BC ==
[2024-03-13] MEDS ORDERED: Acetaminophen/HYDROcodone 325-5 MG Tab PO ONE (16:46)
[2024-03-13] MEDS: Sodium Chloride 0.9% 10 ML Syringe FLUSH PRN (17:05)
[2024-03-13] MEDS: Albuterol/Ipratropium 3.0-0.5 MG/3 ML Neb Soln ONE (17:08)
[2024-03-13] MEDS: Albuterol/Ipratropium 3.0-0.5 MG/3 ML Neb Soln NEB ONE (17:09)
[2024-03-13] MEDS ORDERED: Naloxone 0.4 MG/ML SDV IVPUSH PRN (17:18)
[2024-03-13 17:21] LABS: BASOPHILS ABSOLUTE AUTO 0.1 x10-3/uL (0.0-0.1); BASOPHILS PERCENT AUTO 0.7 % (0.2-1.5); EOSINOPHILS ABSOLUTE AUTO 0.2 x10-3/uL (0.0-0.8); EOSINOPHILS PERCENT AUTO 1.5 % (0.6-8.1); LYMPHOCYTES ABSOLUTE AUTO 2.3 x10-3/uL (1.0-4.4); LYMPHOCYTES PERCENT AUTO 20.6 % (18.4-52.1); MEAN CORPUSCULAR HEMOGLOBIN 27.8 pg (23.9-33.9); MEAN CORPUSCULAR HGB CONC 31.7 g/dL (31.9-34.8); MEAN CORPUSCULAR VOLUME 87.9 fL (76.7-100.5); MEAN PLATELET VOLUME 7.6 fL (7.1-12.4); MONOCYTES ABSOLUTE AUTO 0.8 x10-3/uL (0.3-1.0); MONOCYTES PERCENT AUTO 7.5 % (4.4-15.7); NEUTROPHILS ABSOLUTE AUTO 7.7 x10-3/uL (1.5-6.3); NEUTROPHILS PERCENT AUTO 69.7 % (30.8-76.2); PLATELET COUNT,PLT 354 x10(3)uL (151-488); RED BLOOD CELL COUNT 4.33 x10(6)uL (3.60-5.20); RED CELL DISTRIBUTION WIDTH 16.6 % (12.3-16.5); WHITE BLOOD CELL COUNT,WBC 11.1 x10-3/uL (3.0-10.3)
[2024-03-13 17:24] LABS: BLOOD UREA NITROGEN,BUN 7 mg/dL (7-18); CARBON DIOXIDE,CO2 28 mmol/L (21-32); CHLORIDE,CL 101 mmol/L (100-110); CREATININE 0.7 mg/dL (0.55-1.02); ESTIMATED GFR 88 mL/min (>60); GLUCOSE RANDOM 110 mg/dL (80-116); POTASSIUM,K 4.2 mmol/L (3.5-5.3); SODIUM,NA 135 mmol/L (135-145)
[2024-03-13] MEDS: fentaNYL 100 MCG/2 ML SDV IVPUSH ONE (17:25)
[2024-03-13 17:30] LABS: A/G RATIO 0.4; ALANINE AMINOTRANSFERASE,ALT 34 U/L (12-36); ALBUMIN 2.3 g/dL (3.2-4.6); ALKALINE PHOSPHATASE 197 IU/L (56-112); ASPARTATE AMNIOTRANSFERASE,AST 36 IU/L (5-25); BILIRUBIN TOTAL 0.4 mg/dL (0.1-1.3); PROTEIN TOTAL,TP 8.6 g/dL (6.0-8.0)
[2024-03-13] MEDS: Acetaminophen/HYDROcodone 325-5 MG Tab PO ONE (17:57)
[2024-03-13] MEDS: methylPREDNISolone Sodium Succinate 125 MG/2 ML SDV IVPUSH ONE (17:57)
== END 2024-03-13 19:10 | disposition home or self-care (01) ==
LOC: FB.ED 16:45
DX: J43.1 Panlobular emphysema (principal); R07.89 Other chest pain; E78.00 Pure hypercholesterolemia, unspecified; J45.909 Unspecified asthma, uncomplicated; Z86.16 Personal history of COVID-19; Z90.49 Acquired absence of other specified parts of digestive tract; Z90.710 Acquired absence of both cervix and uterus; Z79.899 Other long term (current) drug therapy; Z79.82 Long term (current) use of aspirin; Z88.0 Allergy status to penicillin; Z88.8 Allergy status to other drugs, medicaments and biological substances; Z88.5 Allergy status to narcotic agent; V89.2XXA Person injured in unspecified motor-vehicle accident, traffic, initial encounter
CPT/HCPCS: 36415; 71045; 80053; 84484; 85025; 93005; 93010; 94640; 96374; 96375; 99284; 99285; A9270; J2919; J3010; J3490; J7620

== ENCOUNTER 2024-03-14 17:39 | Emergency (ER) | payer MEDICARE, BC ==
[2024-03-14] MEDS: Diphtheria,Pertussis(Acell),Tetanus Vaccine 0.5 ML Syringe IM ONE (19:16)
== END 2024-03-14 19:30 | disposition home or self-care (01) ==
LOC: FB.ED 17:39
DX: S61.411A Laceration without foreign body of right hand, initial encounter (principal); S40.021A Contusion of right upper arm, initial encounter; J45.909 Unspecified asthma, uncomplicated; E78.00 Pure hypercholesterolemia, unspecified; Z86.16 Personal history of COVID-19; Z90.49 Acquired absence of other specified parts of digestive tract; Z90.710 Acquired absence of both cervix and uterus; Z79.82 Long term (current) use of aspirin; Z79.899 Other long term (current) drug therapy; Z88.0 Allergy status to penicillin; Z88.5 Allergy status to narcotic agent; Z23 Encounter for immunization; Z88.8 Allergy status to other drugs, medicaments and biological substances; W01.0XXA Fall on same level from slipping, tripping and stumbling without subsequent striking against object, initial encounter
CPT/HCPCS: 73130-RT; 90471; 90715; 99283; 99283-25

== ENCOUNTER 2024-05-04 20:36 | Emergency (ER) | payer MEDICARE, BC ==
[2024-05-04 22:06] LABS: BASOPHILS PERCENT AUTO 0.4 % (0.2-1.5); BLOOD UREA NITROGEN,BUN 8 mg/dL (7-18); BUN/CREATININE RATIO 11.4 (9-20); CALCIUM 7.8 mg/dL (8.6-10.2); CARBON DIOXIDE,CO2 29 mmol/L (21-32); CHLORIDE,CL 101 mmol/L (100-110); CREATININE 0.7 mg/dL (0.55-1.02); EOSINOPHILS ABSOLUTE AUTO 0.2 x10-3/uL (0.0-0.8); EOSINOPHILS PERCENT AUTO 2.3 % (0.6-8.1); EST CRCL DRUG DOSING (CG) 56.27 mL/min; ESTIMATED GFR 88 mL/min (>60); GLUCOSE RANDOM 101 mg/dL (80-116); HEMATOCRIT 33.9 % (34.2-48.2); HEMOGLOBIN 11.1 g/dL (11.4-15.5); LYMPHOCYTES PERCENT AUTO 11.4 % (18.4-52.1); MEAN CORPUSCULAR HEMOGLOBIN 27.1 pg (23.9-33.9); MEAN CORPUSCULAR HGB CONC 32.6 g/dL (31.9-34.8); MEAN PLATELET VOLUME 7.6 fL (7.1-12.4); MONOCYTES ABSOLUTE AUTO 0.8 x10-3/uL (0.3-1.0); MONOCYTES PERCENT AUTO 8.9 % (4.4-15.7); NEUTROPHILS ABSOLUTE AUTO 6.9 x10-3/uL (1.5-6.3); PLATELET COUNT,PLT 301 x10(3)uL (151-488); POTASSIUM,K 3.6 mmol/L (3.5-5.3); RED BLOOD CELL COUNT 4.08 x10(6)uL (3.60-5.20); SODIUM,NA 136 mmol/L (135-145)
[2024-05-04 22:12] LABS: A/G RATIO 0.4; ALANINE AMINOTRANSFERASE,ALT 32 U/L (12-36); ALBUMIN 2.2 g/dL (3.2-4.6); ALKALINE PHOSPHATASE 335 IU/L (56-112); ASPARTATE AMNIOTRANSFERASE,AST 51 IU/L (5-25); BILIRUBIN TOTAL 0.6 mg/dL (0.1-1.3); MAGNESIUM 1.8 mg/dL (1.8-2.5)
[2024-05-04 22:20] LABS: TROPONIN I 4.7 pg/mL (4.0-60.3)
[2024-05-05] MEDS: predniSONE 20 MG Tab PO ONE (00:48)
[2024-05-05] MEDS: Doxycycline 100 MG Tab PO ONE (00:48)
== END 2024-05-05 00:55 | disposition home or self-care (01) ==
LOC: FB.ED 20:36
DX: J44.1 Chronic obstructive pulmonary disease with (acute) exacerbation (principal); E78.00 Pure hypercholesterolemia, unspecified; K21.9 Gastro-esophageal reflux disease without esophagitis; Z86.16 Personal history of COVID-19; Z79.899 Other long term (current) drug therapy; Z88.1 Allergy status to other antibiotic agents; Z88.5 Allergy status to narcotic agent; Z88.0 Allergy status to penicillin; Z88.6 Allergy status to analgesic agent
CPT/HCPCS: 36415; 71046; 80053; 83735; 83880; 84484; 85025; 86140; 93005; 99285; A9270-GY; J7512; U0002